=== PATIENT | female | born 2000 | race Caucasian/White ===

== ENCOUNTER 2019-01-28 08:47 | Emergency (ER) | payer BC ==
[~2019-01-28] VITALS: Ht 167.6 cm; Wt 59.4 kg
[2019-01-28 08:55] VITALS: BP 124/86
[2019-01-28] MEDS ORDERED: SUMAtriptan SUCCINATE 25 MG TABLET PO ONE (09:15)
[2019-01-28] MEDS ORDERED: predniSONE 10 MG TABLET PO ONE (09:15)
[2019-01-28] MEDS ORDERED: diphenhydrAMINE HCL 25 MG CAPSULE PO ONE (09:15)
[2019-01-28] MEDS ORDERED: PROMETHAZINE 12.5 MG TABLET. PO ONE (09:15)
[2019-01-28] MEDS ORDERED: SUMA50TA3 PO (09:28)
[2019-01-28] MEDS ORDERED: ONDA4TAB7 PO (09:28)
--- NOTE | 2019-01-28 09:28 | PHYS DOC ---
Past Medical History Past Medical History: Migraines, Seizure, Other Additional Past Medical Histor: borderline personality disorder Past Surgical History: Other Additional Past Surgical Histo: wisdom teeth Alcohol Use: None Drug Use: None Adult General Chief Complaint Chief Complaint: HEADACHE HPI HPI Patient is a 18 year old female with history of seizures, migraine headaches, who presents to the ED today with a 4 out of 10 throbbing frontal migraine headache with photosensitivity and nausea that began this morning at 4 AM. Patient denies the headache waking her up. She states she's tried Excedrin Migraine with some relief. Denies this being the worst headache in her life. Review of Systems Review of Systems Constitutional: Denies fever or chills [] Eyes: Denies change in visual acuity, redness, or eye pain [] HENT: Denies nasal congestion or sore throat [] Respiratory: Denies cough or shortness of breath [] Cardiovascular: No additional information not addressed in HPI [] GI: Denies abdominal pain, nausea, vomiting, bloody stools or diarrhea [] : Denies dysuria or hematuria [] Musculoskeletal: Denies back pain or joint pain [] Integument: Denies rash or skin lesions [] Neurologic: Reports migraine headache, focal weakness or sensory changes [] All other systems were reviewed and found to be within normal limits, except as documented in this note. Current Medications Current Medications Current Medications Medications (Trade) Dose Ordered Sig/Lexx Start Time Stop Time Status Last Admin Dose Admin Diphenhydramine HCl (Benadryl) 25 mg 1X ONCE 01/28/19 09:15 01/28/19 09:16 DC 01/28/19 09:19 25 MG Prednisone (Prednisone) 50 mg 1X ONCE 01/28/19 09:15 01/28/19 09:16 DC 01/28/19 09:20 50 MG Promethazine HCl (Phenergan) 12.5 mg 1X ONCE 01/28/19 09:15 01/28/19 09:16 DC 01/28/19 09:19 12.5 MG Sumatriptan Succinate (Imitrex) 25 mg 1X ONCE 01/28/19 09:15 01/28/19 09:16 DC 01/28/19 09:20 25 MG Allergies Allergies Allergies Coded Allergies Type Severity Reaction Last Updated Verified No Known Drug Allergies 01/28/19 No Physical Exam Physical Exam Constitutional: Well developed, well nourished, no acute distress, non-toxic appearance. [] HENT: Normocephalic, atraumatic, bilateral external ears normal, oropharynx moist, no oral exudates, nose normal. [] Eyes: PERRLA, EOMI, conjunctiva normal, no discharge. [] Neck: Normal range of motion, no tenderness, supple, no stridor. [] Cardiovascular:Heart rate regular rhythm, no murmur [] Lungs & Thorax: Bilateral breath sounds clear to auscultation [] Abdomen: Bowel sounds normal, soft, no tenderness, no masses, no pulsatile masses. [] Skin: Warm, dry, no erythema, no rash. [] Back: No tenderness, no CVA tenderness. [] Extremities: No tenderness, no cyanosis, no clubbing, ROM intact, no edema. [] Neurologic: Alert and oriented X 3, normal motor function, normal sensory function, no focal deficits noted. Cranial nerves II through XII intact Psychologic: Affect normal, judgement normal, mood normal. [] Current Patient Data Vital Signs Vital Signs Date Time Temp Pulse Resp B/P (MAP) Pulse Ox O2 Delivery O2 Flow Rate FiO2 01/28/19 08:55 98.7 106 16 124/86 (99) 100 Room Air 98.7 EKG EKG [] Radiology/Procedures Radiology/Procedures [] Course & Med Decision Making Course & Med Decision Making Pertinent Labs and Imaging studies reviewed. (See chart for details) This is a 18-year-old female patient presenting to the ED today with a migraine headache, has history of migraines, there is nothing unusual about her headache today. She'll be discharged with Imitrex and Zofran. Follow-up with PCP in 1-2 weeks. Dragon Disclaimer Dragon Disclaimer This electronic medical record was generated, in whole or in part, using a voice recognition dictation system. Departure Departure Impression: Primary Impression: Migraine headache Disposition: 01 HOME, SELF-CARE Condition: STABLE Referrals: JIAN MOODY (PCP) follow up with your doctor in 1 week Patient Instructions: Migraine Headache Additional Instructions: You were evaluated in the emergency room for a migraine headache. Take the pres cribed medications as ordered. Follow-up with your doctor in 1-2 weeks. Scripts Ondansetron Hcl (ZOFRAN) 4 Mg Tablet 1 TAB PO Q6HRS, #20 TAB Prov: SAROJ ARMAS APRN 01/28/19 Sumatriptan Succinate (IMITREX) 50 Mg Tablet 1 TAB PO UD, #9 TAB 1 Refill One tablet at the onset of Migraine headache, repeat another dose in 2 hours if headache contiues. Do not take more than 2 tablets in 24 hours Prov: SAROJ ARMAS APRN 01/28/19 Problem Qualifiers Primary Impression: Migraine headache Migraine type: unspecified Status migrainosus presence: without status migrainosus Intractability: not intractable Qualified Codes: G43.909 - Migraine, unspecified, not intractable, without status migrainosus SAROJ ARMAS APRN Jan 28, 2019 09:28
== END 2019-01-28 09:38 | disposition home or self-care (01) ==
LOC: ER 08:47
DX: G43.909 Migraine, unspecified, not intractable, without status migrainosus (principal)
CPT/HCPCS: 99284; J7512; Q0163; Q0169

== ENCOUNTER 2019-12-28 19:04 | Emergency (ER) | payer SELFPAY ==
[~2019-12-28] VITALS: Ht 167.6 cm; Wt 61.0 kg
[~2019-12-28 19:04] MED LIST: ONDA4TAB7 PO; SUMA50TA3 PO
--- NOTE | 2019-12-28 19:23 | PHYS DOC ---
Past Medical History Past Medical History: Migraines, Seizure, Other Additional Past Medical Histor: borderline personality disorder Past Surgical History: Other Additional Past Surgical Histo: wisdom teeth Smoking Status: Never Smoker Alcohol Use: None Drug Use: None General Adult EDM: Chief Complaint: BACK INJURY HPI: HPI: Patient is a 19 year old female who presents for evaluation for back pain following a fall. Patient says she slipped while getting into the bathtub and hit her back on the edge of the tub. Patient denies hitting her head or having loss of consciousness. Patient states her pain is an 8 out of 10 and nonradiating and and throbbing. Patient had some transient tingling in her right foot that is improved. Patient denies any bowel or bladder incontinence. Pain is worse with palpation and movement Review of Systems: Review of Systems: Constitutional: Denies fever or chills Eyes: Denies change in visual acuity HENT: Denies sore throat Respiratory: Denies cough or shortness of breath Cardiovascular: Denies chest pain or edema GI: Denies abdominal pain, nausea, vomiting, or diarrhea : Denies dysuria Musculoskeletal: Complains of back pain but no other joint pain Integument: Denies rash Neurologic: Denies headache or focal weakness had some transient numbness in the right foot that is improved Psychiatric: Denies depression or anxiety Heart Score: Risk Factors: Risk Factors: DM, Current or recent (<one month) smoker, HTN, HLP, family history of CAD, obesity. Risk Scores: Score 0 - 3: 2.5% MACE over next 6 weeks - Discharge Home Score 4 - 6: 20.3% MACE over next 6 weeks - Admit for Clinical Observation Score 7 - 10: 72.7% MACE over next 6 weeks - Early Invasive Strategies Allergies: Allergies: Allergies Coded Allergies Type Severity Reaction Last Updated Verified No Known Drug Allergies 01/28/19 No Physical Exam: PE: Constitutional: Well developed, well nourished, no acute distress, non-toxic appearance. HENT: No trismus, external ears normal Eyes: Conjunctiva clear, EOMI Neck: Normal range of motion, no tenderness, supple, no stridor. Cardiovascular: Regular rate/rhythm, peripheral pulse intact, LIME BURNER intact Lungs & Thorax: No respiratory distress Abdomen: No distension, nontender Skin: Diffuse: Intact, no rash Back: Limited range of motion due to pain. Tenderness to palpate in the mid lumbar area. Extremities: Normal inspection, no edema Neurologic: Alert and oriented X 3, normal motor function, , no focal deficits noted. No signs or symptoms of cauda equina. Psychologic: Affect normal, judgement normal, mood normal. Current Patient Data: Labs: Laboratory Tests Test 12/28/19 19:39 Bedside Urine HCG, Qualitative Hcg negative Current Medications Medications (Trade) Dose Ordered Sig/Lexx Route PRN Reason Start Time Stop Time Status Last Admin Dose Admin Oxycodone/ Acetaminophen (Percocet 7.5/ 325) 1 tab 1X ONCE PO 12/28/19 19:30 12/28/19 19:31 DC 12/28/19 19:41 Vital Signs: Vital Signs Date Time Temp Pulse Resp B/P (MAP) Pulse Ox O2 Delivery O2 Flow Rate FiO2 12/28/19 19:41 16 97 Room Air 12/28/19 19:16 99.5 98 18 115/82 (93) 97 Room Air 99.5 EKG: EKG: [] Radiology/Procedures: Radiology/Procedures: [][facility] [address] [place] [address] IMAGING REPORT Signed PATIENT: AZAEL NEWBY ACCOUNT: [id number] : 2000 LOCATION: ER AGE: 19 SEX: F EXAM STATUS: REG ER ORD. PHYSICIAN: DONI MORALES MD REASON: FALL, BACK PAIN PROCEDURE: LUMBAR SPINE 2-3V Exam: Lumbar spine 2 views INDICATION: Fall, back pain TECHNIQUE: Frontal and lateral views lumbar spine Comparisons: None FINDINGS: Vertebral body heights and alignment are well-maintained. No significant spondylotic changes lumbar spine. Is paraspinal soft tissues are unremarkable. IMPRESSION: Unremarkable lumbar spine radiographs. Electronically signed by: Erica Peoples MD (12/28/2019 8:30 PM) [id number] DICTATED and SIGNED BY: ERICA PEOPLES MD DATE: 12/28/192029 Course & Med Decision Making: Course & Med Decision Making Pertinent Labs and Imaging studies reviewed. (See chart for details) [] 19-year-old female presents with a back contusion. Neurologically intact. Reassessment at 2036 shows improved pain. Neurologically intact. No signs of cauda equina. Patient stable for discharge and outpatient follow-up with return precautions given Mal Disclaimer: Mal Disclaimer: This electronic medical record was generated, in whole or in part, using a voice recognition dictation system. Departure Departure Impression: Primary Impression: Lumbar contusion Disposition: HOME, SELF-CARE Condition: STABLE Referrals: NO PCP (PCP) [facility] 2-3 days Patient Instructions: Back Pain, Adult Additional Instructions: EMERGENCY DEPARTMENT GENERAL DISCHARGE INSTRUCTIONS THANK YOU for coming to [facility] Emergency Department (ED) today and trusting us with your care. We trust that you had a positive experience in our Emergency Department. If you wish to speak to the department Management you can contact the management department chair at . YOUR FOLLOW UP INSTRUCTIONS ARE FOLLOWS: Do you have a private doctor? If you do not have a private doctor, please ask for a resource list of physicians or clinics that may be able to assist you with follow up car e. The Emergency Physician has interpreted your x-rays. The X-ray specialist will also review them. If there is a change in the findings you will be notified in 48 hours when at all possible. A lab test or lab culture may have been done, your results will be reviewed and you will be notified if you need a change in treatment. ADDITIONAL INSTRUCTIONS AND INFORMATION Your care today has been supervised by a physician who is specially trained in emergency care. Many problems require more than one evaluation for a complete diagnosis and treatment. We recommend that you schedule your follow up appointment as recommended to ensure complete treatment of your illness or injury. If you are unable to obtain follow up care and continue to have a problem, or if your condition worsens we recommend that you return to the ED. We are not able to safely determine your condition over the phone nor are we able to give sound medical advice over the phone. For these safety reasons, if you call for medical advice we will ask you to come to the ED for further evaluation If you have any questions regarding these discharge instructions please call the ED at . SAFETY INFORMATION In the interest of safety, wellness, and injury prevention; we encourage you to wear your seatbelt, if you smoke; quit smoking, and we encourage your family to use protective helmet for bicycling and other sporting events that present an increased risk for head injury. IF YOUR SYMPTOMS WORSEN OR NEW SYMPTOMS DEVELOP, OR YOU HAVE CONCERNS ABOUT YOUR CONDITION; OR IF YOUR CONDITION WORSENS WHILE YOU ARE WAITING FOR YOUR FOLLOW UP APPOINTMENT; EITHER CONTACT YOUR PRIMARY CARE DOCTOR, THE PHYSICIAN WHOSE NAME AND NUMBER YOU WERE GIVEN, OR RETURN TO THE ED IMMEDIATELY. Scripts Ibuprofen (IBUPROFEN) 600 Mg Tablet 600 MG PO PRN Q6HRS PRN for PAIN, #20 TAB take with food or milk Prov: DONI MORALES MD 12/28/19 Hydrocodone/Apap 5-325 (NORCO 5-325 TABLET) 1 Each Tablet 1-2 EACH PO PRN Q6HRS PRN for PAIN, #15 as needed for pain Prov: DONI MORALES MD 12/28/19 Justicifation of Admission Dx: Justifications for Admission: Justification of Admission Dx: N/A DONI MORALES MD Dec 28, 2019 19:23
[2019-12-28] MEDS ORDERED: oxyCODONE/APAP 7.5/325 1 TAB TABLET PO ONE (19:30)
--- NOTE | 2019-12-28 20:33 | RAD ---
Exam: Lumbar spine 2 views INDICATION: Fall, back pain TECHNIQUE: Frontal and lateral views lumbar spine Comparisons: None FINDINGS: Vertebral body heights and alignment are well-maintained. No significant spondylotic changes lumbar spine. Is paraspinal soft tissues are unremarkable. IMPRESSION: Unremarkable lumbar spine radiographs. Electronically signed by: Erica May MD (12/28/2019 8:30 PM) [id number]
[2019-12-28] MEDS ORDERED: HYDR-3164 PO (20:45)
[2019-12-28] MEDS ORDERED: IBUP-1007 PO (20:45)
[2019-12-28 20:49] VITALS: BP 122/82
== END 2019-12-28 20:49 | disposition home or self-care (01) ==
LOC: ER 19:04
DX: S30.0XXA Contusion of lower back and pelvis, initial encounter (principal); G43.909 Migraine, unspecified, not intractable, without status migrainosus; W01.198A Fall on same level from slipping, tripping and stumbling with subsequent striking against other object, initial encounter; Y93.E1 Activity, personal bathing and showering; Y92.091 Bathroom in other non-institutional residence as the place of occurrence of the external cause; Y99.8 Other external cause status
CPT/HCPCS: 72100; 81025; 99284